=== PATIENT | male | born 1955 | race Caucasian/White ===

== ENCOUNTER 2019-06-14 12:19 | Emergency (ER) | payer OTHER, SELFPAY ==
[~2019-06-14] VITALS: Ht 170.2 cm; Wt 97.1 kg
[2019-06-14 12:19] VITALS: BP 139/91
--- NOTE | 2019-06-14 12:19 | NUR ---
PT WAS SCREENED OUTSIDE IN COVID TENT BY MYSELF. PT HAD A MASK IN PLACE, I HAD COVID PRECAUTIONS IN PLACE, GOWN, N95, FACE SHIELD, HAIR NET, GLOVES WITH GREETING PATIENT. PT WAS TRIAGED IN TENT AND THEN TAKEN TO BED 1 AND PLACED IN COVID RULE OUT PRECAUTIONS. NITIN SANTIZO GIVEN REPORT.
--- NOTE | 2019-06-14 12:20 | NUR ---
Patient ambulated to bed 1. RN evaluating patient at bedside.
--- NOTE | 2019-06-14 12:30 | NUR ---
PT C/O SOB AND BILATERAL CHEST CONGESTION WITH PRESSURE FOR ONE MONTH. DENIES SORE THROAT, CHEST PAIN, COUGH, FEVER, RUNNY NOSE, N/V/D, RECENT TRAVEL, OR SICK CONTACTS. REPORTS GOT COVID TESTING WITH NEGATIVE RESULT ONE MONTH AGO. PARANASAL PRESSURE ON PALPATION. PATIENT STATES PAIN OF 0/10 AT THIS TIME; VSS; PATIENT POSITIONED FOR COMFORT; HOB ELEVATED; BEDRAILS UP X1; BED DOWN. ER MD MADE AWARE OF PT STATUS. PT IS IN THE ISOLATION ROOM AND ON MONITOR.
[2019-06-14 14:12] VITALS: BP 124/80
--- NOTE | 2019-06-14 14:12 | NUR ---
Patient discharged with v/s stable. Written and verbal after care instructions given and explained. Patient alert, oriented and verbalized understanding of instructions. Ambulatory with steady gait. All questions addressed prior to discharge. ID band removed. Patient advised to follow up with PMD. Rx of Clindamycin 300mg and Loratadine 10mg given. Patient educated on indication of medication including possible reaction and side effects. Opportunity to ask questions provided and answered.
== END 2019-06-14 14:12 | disposition home or self-care (01) ==
LOC: EEVIPCON 12:19 → MED 12:19
DX: J32.9 Chronic sinusitis, unspecified (principal); R06.00 Dyspnea, unspecified; E11.9 Type 2 diabetes mellitus without complications; I10 Essential (primary) hypertension; Z88.0 Allergy status to penicillin
CPT/HCPCS: 71045; 99283; Q0092

== ENCOUNTER 2022-06-12 04:53 | Emergency (ER) | payer OTHER ==
[~2022-06-12] VITALS: Ht 175.3 cm; Wt 98.9 kg
[2022-06-12 05:00] VITALS: BP 124/77
--- NOTE | 2022-06-12 05:10 | NUR ---
PT TO 2
--- NOTE | 2022-06-12 05:19 | NUR ---
Xray by bedside
[2022-06-12] MEDS ORDERED: ROB PO (06:27)
[2022-06-12] MEDS ORDERED: AZIT250T4 PO (06:27)
[2022-06-12] MEDS ORDERED: ACET-10509 PO (06:27)
[2022-06-12 06:38] VITALS: BP 124/77
--- NOTE | 2022-06-12 06:39 | NUR ---
Patient discharged with v/s stable. Written and verbal after care instructions given and explained. New rx tylenol, zithromax, robitussin. Patient verbalized understanding. Ambulatory with steady gait. All questions addressed prior to discharge. Advised to follow up with PMD.
== END 2022-06-12 06:38 | disposition home or self-care (01) ==
LOC: MED 04:53
DX: J20.9 Acute bronchitis, unspecified (principal); Z20.822 Contact with and (suspected) exposure to COVID-19; E11.9 Type 2 diabetes mellitus without complications; I10 Essential (primary) hypertension; Z79.899 Other long term (current) drug therapy; Z79.2 Long term (current) use of antibiotics; Z88.0 Allergy status to penicillin
CPT/HCPCS: 71045; 87426; 87804; 93005; 99285; Q0092